=== PATIENT | male | born 1995 | race Two or more races ===

== ENCOUNTER 2017-06-20 20:08 | Emergency (ER) | payer OTHER ==
[~2017-06-20] VITALS: Ht 170.2 cm; Wt 53.1 kg
== END 2017-06-20 22:26 | disposition home or self-care (01) ==
LOC: ER 20:08
DX: S30.1XXA Contusion of abdominal wall, initial encounter (principal); V49.3XXA Car occupant (driver) (passenger) injured in unspecified nontraffic accident, initial encounter; Y93.89 Activity, other specified; Y92.488 Other paved roadways as the place of occurrence of the external cause; Y99.8 Other external cause status; R11.10 Vomiting, unspecified

== ENCOUNTER 2018-05-12 18:23 | Emergency (ER) | payer OTHER ==
[~2018-05-12] VITALS: Ht 167.6 cm; Wt 56.2 kg
== END 2018-05-12 19:59 | disposition home or self-care (01) ==
LOC: ER 18:23
DX: L02.818 Cutaneous abscess of other sites (principal)

== ENCOUNTER 2022-05-25 12:08 | Day surgery (SDC) | payer OTHER ==
[~2022-05-25 12:08] MED LIST: DEPAKOTE ER250 MG PO; PEPCID AC20 MG PO
[2022-05-25] MEDS ORDERED: ULTRAM50 MG PO (18:34)
[2022-05-25] MEDS ORDERED: KETO10TA2 PO (18:34)
[2022-05-25] MEDS ORDERED: MIRALAX17 GM PO (18:34)
[2022-05-25] MEDS ORDERED: TYLENOL ARTHRI650 MG PO (18:34)
== END 2022-05-26 00:30 | disposition home or self-care (01) ==
LOC: CIR.AMB 12:08
PROVIDERS: ATTEND Surgery
DX: K40.91 Unilateral inguinal hernia, without obstruction or gangrene, recurrent (principal); K40.90 Unilateral inguinal hernia, without obstruction or gangrene, not specified as recurrent; I10 Essential (primary) hypertension; Z88.8 Allergy status to other drugs, medicaments and biological substances; Z20.822 Contact with and (suspected) exposure to COVID-19
CPT/HCPCS: 49650; 49651; C1781

== ENCOUNTER 2022-08-29 00:49 | Emergency (ER) | payer OTHER ==
[~2022-08-29] VITALS: Ht 170.2 cm; Wt 58.1 kg
[~2022-08-29 00:49] MED LIST changes: +KETO10TA2 PO; +MIRALAX17 GM PO; +TYLENOL ARTHRI650 MG PO; +ULTRAM50 MG PO
== END 2022-08-29 06:04 | disposition home or self-care (01) ==
LOC: ER 00:49
DX: R10.31 Right lower quadrant pain (principal); L04.1 Acute lymphadenitis of trunk